=== PATIENT | male | born 1970 | race Caucasian/White ===

== ENCOUNTER 2016-09-26 18:55 | Emergency (ER) | payer MEDICARE ==
[2016-09-26 19:56] LABS: HEMOGLOBIN 13.9 gm/dl (14.0-17.5); RED BLOOD COUNT 4.46 M/UL (4.20-5.50); WHITE BLOOD COUNT 4.4 K/UL (4.5-11.0)
[2016-09-27 00:17] LABS: BUN/CREATININE RATIO 14 (0-10)
== END 2016-09-27 01:15 | disposition home or self-care (01) ==
LOC: ER1 18:55
PROVIDERS: Family Medicine
DX: R07.89 Other chest pain (principal)
CPT/HCPCS: 36415; 71010; 80053; 82550; 82553; 83874; 84484; 85025; 93005; 99285

== ENCOUNTER 2016-11-21 15:56 | Emergency (ER) | payer MEDICARE | END 2016-11-21 18:20 | disposition home or self-care (01) | LOC: ER1 15:56 | DX: S61.411A Laceration without foreign body of right hand, initial encounter (principal); E11.9 Type 2 diabetes mellitus without complications; I10 Essential (primary) hypertension; F17.210 Nicotine dependence, cigarettes, uncomplicated; Z88.5 Allergy status to narcotic agent; Z23 Encounter for immunization; W26.8XXA Contact with other sharp object(s), not elsewhere classified, initial encounter; Y92.009 Unspecified place in unspecified non-institutional (private) residence as the place of occurrence of the external cause | CPT/HCPCS: 12002; 73130; 82962; 90471; 99283 ==

== ENCOUNTER 2021-04-18 12:00 | Emergency (ER) | payer OTHER ==
[~2021-04-18 12:00] MED LIST: AUGMENTIN 875-1 EACH PO; BACTRIM DS TAB1 EACH PO; CLINDAMYCIN HC300 MG PO; FLEXERIL 10 MG10 MG PO; KEFLEX CAP 500500 MG PO; LODINE CAP 300300 MG PO; NAPROSYN500 MG PO; NICOTINE PATCH1 EAC2 TD; THERAGRAN M TAB1 EA PO; ULTRAM50 MG PO
[2021-04-18 13:34] LABS: HEMOGLOBIN 16.3 gm/dl (14.0-17.5); RED BLOOD COUNT 4.95 M/UL (4.20-5.50); WHITE BLOOD COUNT 3.8 K/UL (4.5-11.0)
[2021-04-18 14:05] LABS: BUN/CREATININE RATIO 22 (0-10)
[2021-04-18] MEDS ORDERED: GLUCOPHAGE 500500 MG GT (20:16)
== END 2021-04-18 20:24 | disposition home or self-care (01) ==
LOC: ER1 12:00
PROVIDERS: Student in an Organized Health Care Education/Training Program
DX: E11.65 Type 2 diabetes mellitus with hyperglycemia (principal); K74.60 Unspecified cirrhosis of liver; D72.819 Decreased white blood cell count, unspecified; D69.6 Thrombocytopenia, unspecified; F17.200 Nicotine dependence, unspecified, uncomplicated
CPT/HCPCS: 80053; 80307; 82009; 82550; 82553; 82962; 83874; 84484; 85025; 85610; 93005; 96374; 99284; Q9967